=== PATIENT | female | born 1965 | race Caucasian/White ===

== ENCOUNTER 2016-12-12 09:35 | Day surgery (SDC) | payer OTHER ==
[~2016-12-12] VITALS: Ht 165.1 cm; Wt 76.6 kg
[~2016-12-12 09:35] MED LIST: 0.9% Sodium Chloride 1,000 ML IV PRN; OMEP20CA11 PO; POLY17PO6 PO; Sodium Chloride LOK Flush 10 mL Syringe IV PRN; fentaNYL-PF 50 mCg/mL 2 mL Inj IVPUSH PRN
[2016-12-12 10:14] VITALS: BP 117/78; PULSE 61; RESP 14; O2SAT 99
[2016-12-12 11:08] VITALS: BP 107/64; PULSE 62; RESP 16; O2SAT 94
[2016-12-12 11:18] VITALS: BP 112/66; PULSE 57; RESP 16; O2SAT 96
[2016-12-12 11:29] VITALS: BP 120/75; PULSE 69; RESP 14; O2SAT 97
--- NOTE | 2016-12-12 14:09 | ENDO ---
[address] [address] ENDOSCOPY PROCEDURE PATIENT: ECCI JEAN : 1965 MR#: [id number] ADMIT: 12/12/2016 JOB ID: [id number] DATE OF SERVICE: 12/12/2016 TYPE OF OPERATION: Esophagogastroduodenoscopy, biopsy, and colonoscopy. PREOPERATIVE DIAGNOSIS(ES): History of Carter's esophagus, bloating and constipation. POSTOPERATIVE DIAGNOSIS(ES): 1. Irregular Z-line, status post biopsy. 2. Small internal hemorrhoids. ANESTHESIA: Fentanyl 150 mcg, Versed 8 mg IV administered. COMPLICATIONS: None. BLOOD LOSS: Minimal. DESCRIPTION OF PROCEDURE: After risks and benefits explained to patient, informed consent was obtained. After anesthesia administered, upper endoscope was then inserted in mouth intubating to the esophagus, stomach, second portion of duodenum. Mucosa carefully examined. After procedure was done, the scope withdrawn, procedure terminated. Colonoscope was then inserted from the rectum to the cecum. Mucosa carefully examined. Prep of the patient was excellent. After procedure was done, the scope withdrawn, procedure terminated. FINDINGS: Upon inspection of the esophagus, there was an irregular Z-line located at the distal esophagus. Z-line located at 40 cm from incisors. Upon entering the stomach, there were no masses, ulcers, or lesions that were seen. Retroflexion was normal duodenal bulb, first and second portion. biopsies taken at duodenum, antrum, body and distal esophagus. Upon inspection of the anus, no masses, hemorrhoids, ulcers, or fissures that were seen. Throughout the entire examination, there were no polyps, masses, or lesions. Retroflexion showed small internal hemorrhoids. IMPRESSION: 1. Small internal hemorrhoids. 2. Irregular Z-line, status post biopsy. RECOMMENDATIONS: 1. Await pathology results. 2. If no dysplasia, then repeat EGD in three years given history of Carter's esophagus. 3. Continue PPI. 4. Follow up in GI clinic as needed.
--- NOTE | 2016-12-15 14:38 | PATH ---
SURGICAL PATHOLOGY Attending Physician:Larry Salmon MD CASE STATUS: Signed Out PATIENT NAME: CECI JEAN PID: [id number] : 1965 DATE COLLECTED:12/12/2016 22:12 SPECIMEN: 1: Esophagus, Biopsy 2: Gastric, Biopsy 3: Stomach, Antrum, Biopsy 4: Duodenum, Biopsy CLINICAL HISTORY: ABDOMINAL PAIN, TAM'S 1). DISTAL ESOPHAGUS BIOPSY 2). GASTRIC BODY BIOPSY, RULE OUT H.PYLORI 3). ANTRAL BIOPSY 4). DUODENAL BIOPSY, RULE OUT CELIAC FINAL DIAGNOSIS: 1.DISTAL ESOPHAGUS, BIOPSY: NORMAL ESOPHAGEAL SQUAMOUS EPITHELIUM. Negative for intestinal metaplasia. No evidence of dysplasia or malignancy. 2.GASTRIC BODY, BIOPSY: GASTRIC CORPUS WITH MILD CHRONIC GASTRITIS. Negative for Helicobacter organisms. Negative for intestinal metaplasia. No evidence of dysplasia or malignancy. 3.GASTRIC ANTRUM, BIOPSY: GASTRIC ANTRUM WITH MILD CHRONIC GASTRITIS. Negative for Helicobacter organisms. Negative for intestinal metaplasia. No evidence of dysplasia or malignancy. 4.DUODENUM, BIOPSY: NO DIAGNOSTIC ABNORMALITY. Negative for intraepithelial lymphocytosis, villous blunting, or other features of celiac sprue. Negative for Giardia organisms, dysplasia and malignancy. ICD10 R109 GROSS DESCRIPTION: The specimens are received in formalin, labeled with the patient's name and sublabeled as the following: (1) distal esoph BXs; (2) gastric body BXs; (3) antral BXs; (4) duodenal BXs. (1) The specimen consists of a fragment of arevalo-white, glistening, semi-translucent tissue (0.5 x 0.3 x 0.1 cm). Section code: (1A) intact tissue. Specimen entirely submitted. (2) The specimen consists of multiple fragments of douglas-white, glistening, rubbery, semi-translucent tissue (0.5 x 0.3 x 0.1 cm in aggregate). Section code: (2A) tissue. Specimen entirely submitted. (3) The specimen consists of a fragment of arevalo-white, glistening, semi-translucent tissue (0.5 x 0.2 x 0.1 cm). Section code: (3A) intact tissue. Specimen entirely submitted. (4) The specimen consists of multiple of douglas-white, glistening, rubbery, semi-translucent tissue (0.4 x 0.3 x 0.1 cm in aggregate). Section code: (4A) tissue. Specimen entirely submitted. ([id number]) MICRO DESCRIPTION: See diagnosis. ICD-9 CODES: CPT CODES: 1: 86606 2: 87179 3: 55072 4: 87127 Electronically Signed Out Nils Maravilla MD [facility] [address], [place] [address] Technical component performed at [facility], [address], [place], [address]
== END 2016-12-12 23:59 | disposition home or self-care (01) ==
LOC: END 09:35
PROVIDERS: ATTEND Internal Medicine Gastroenterology
DX: K64.8 Other hemorrhoids (principal); K59.00 Constipation, unspecified; K29.50 Unspecified chronic gastritis without bleeding; R10.13 Epigastric pain; K22.70 Barrett's esophagus without dysplasia; K21.9 Gastro-esophageal reflux disease without esophagitis; F41.9 Anxiety disorder, unspecified; Z90.710 Acquired absence of both cervix and uterus; Z87.891 Personal history of nicotine dependence
CPT/HCPCS: 43239; 45378; 88305; 99153; G0500; J2250; J3010; J7030